=== PATIENT | male | born 1990 | race African-American/Black ===

== ENCOUNTER 2017-02-26 22:54 | Emergency (ER) | payer OTHER ==
[~2017-02-26] VITALS: Ht 177.8 cm; Wt 95.3 kg
--- NOTE | 2017-02-27 | REPUSA ---
CT of the thoracic spine without contrast Clinical history: Pain. Trauma. Technique: Multiple axial CT images were obtained through the thoracic spine without administration o f contrast. Coronal and sagittal 3-D reconstructed images were also obtained. Findings: The vertebral bodies are in satisfactory positioning and alignment. No fractures or dislocations are demonstrated. Intervertebral disc spaces are well-maintained. There is no evidence of facet subluxati on. The neural foramen appear grossly patent. The spinal canal demonstrates normal caliber and contou r without evidence of spinal stenosis. The surrounding soft tissues are within normal limits. Impression: No acute traumatic injury
--- NOTE | 2017-02-27 | REPUSA ---
CT of the head Clinical history: trauma. Technique: Multiple axial CT images were obtained through the head without administration of contrast . Comparison: None. Findings: The ventricles and sulci are symmetric bilaterally. There is no evidence of acute hemorrhag e or infarct. There is no midline shift, mass effect, or extra-axial fluid collection. The osseous st ructures are unremarkable. The visualized paranasal sinuses and mastoid air cells are clear. Impression: Negative study.
--- NOTE | 2017-02-27 | REPUSA ---
CT of the cervical spine Clinical history: trauma. Technique: Multiple axial CT images were obtained through the cervical spine without administration o f contrast. Coronal and sagittal 3-D reconstructed images were also obtained. Comparison: None. Findings: The cervical vertebral bodies are in satisfactory positioning and alignment. No fractures or dislocat ions are demonstrated. The odontoid process is intact. There is complete loss of the C6/C7 disc space . Intervertebral disc spaces are otherwise well-maintained. There is no evidence of facet subluxation . The neural foramen appear grossly patent. The cervical cranial junction is intact. The cervical spi nal canal demonstrates normal caliber and contour without evidence of spinal stenosis. The surroundin g soft tissues are within normal limits. Impression: Unremarkable CT examination of the cervical spine. No acute traumatic injury appreciated.
[2017-02-27 00:29] VITALS: BP 132/71
== END 2017-02-27 00:45 | disposition home or self-care (01) ==
LOC: M ED 22:54 → EDBD 22:54 → M ED 02-27 00:33
DX: S20.221A Contusion of right back wall of thorax, initial encounter (principal); W17.89XA Other fall from one level to another, initial encounter; Y92.830 Public park as the place of occurrence of the external cause; Y93.39 Activity, other involving climbing, rappelling and jumping off; Y99.8 Other external cause status; Z87.891 Personal history of nicotine dependence

== ENCOUNTER → 2017-07-03 | Outpatient (CLI) | payer OTHER ==
--- NOTE | 2017-07-03 10:30 | REP ---
Scrotal ultrasound: There are no comparison studies. The testes are normal size. The right testis measures 6.1 x 2.5 x 3.6 cm. Left testis measures 5.6 x 2.4-0.5 cm. There are no testicular masses. There is vascular flow in both testes. The Doppler resistive index of the intraparenchymal arteries on the right is 0.58 on the left 0.56. There is a 4 mm right epididymal head cyst and a 5 ml left epididymal head cyst. Balloon There are small bilateral hydroceles. There is a left varicocele. Impression: Bilateral hydroceles. Left varicocele. There are no testicular masses. There is vascular flow in both testes. Signed by Kenneth Ortiz MD 07/03/2017 10:22 A
== END ==
LOC: M SMT 09:17
PROVIDERS: ATTEND Nurse Practitioner Women's Health
DX: I86.1 Scrotal varices (principal); N43.2 Other hydrocele

== ENCOUNTER → 2017-07-06 | Outpatient (REF) | payer OTHER ==
[2017-07-06 14:26] LABS: NON PROGRESSIVE MOTILITY (c) 15 %; PROGRESSIVE MOTILITY (a) 57 % (>=32); SPERM ABNORMAL FORMS WBC'S NOTED; TOTAL MOTILITY 72 % (>=40)
[2017-07-06 14:27] LABS: % NORMAL FORMS 14 % (>=4); IMMOTILITY 28 %; SPERM# 74.3 M/Ejac (>=39); TOTAL FUNCTIONAL 12.7 M/Ejac.; TOTAL PROGRESSIVE SPERM 42.5 M/Ejac.
== END ==
LOC: M SMT 13:24
PROVIDERS: ATTEND Nurse Practitioner Women's Health
DX: I86.1 Scrotal varices (principal)

== ENCOUNTER → 2017-11-14 | Outpatient (CLI) | payer OTHER ==
[~2017-11-14] MED LIST: CONRAY-43 43% 50ML VIAL (Q9960) As Ordered; LIDOCAINE 1% MDV 20ML VIAL As Ordered; TRIAMCINOLONE ACETONIDE SUSP 40 MG/ML VIAL (J3301) As Ordered
== END ==
LOC: M RADPRO 09:49
DX: M25.551 Pain in right hip (principal); M25.851 Other specified joint disorders, right hip
CPT/HCPCS: 20610